=== PATIENT | female | born 1985 | race Caucasian/White ===

== ENCOUNTER 2023-12-13 08:37 | Emergency (ER) | payer OTHER, SELFPAY ==
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
--- NOTE | ~2023-12-13 | XR_ITS ---
EXAMINATION: XR SHOULDER, RIGHT CLINICAL INFORMATION: Pain COMPARISON: None available. TECHNIQUE: AP external rotation, Grashey, scapular Y views of the right shoulder. FINDINGS: The bones are intact. No fracture. Glenohumeral and acromioclavicular alignment is anatomic with normal joint space. No abnormal soft tissue calcifications. XR/XR shoulder RT min 2V IMPRESSION: No bony abnormality.
[2023-12-13 09:03] VITALS: BP 126/69; PULSE 77; RESP 18; TEMP 36.4; O2SAT 99; BMI 30.3
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
[2023-12-13] MEDS: Lidocaine 4 % Patch ADH..PATCH 1 PATCH TRANSDERMA (12:54)
[2023-12-13] MEDS: Ketorolac Tromethamine 30 MG/ML VIAL IM (12:55)
[2023-12-13 13:36] VITALS: BP 118/73; PULSE 66; RESP 12; TEMP 36.2; O2SAT 100
[2023-12-13 13:49] VITALS: BP 118/73; PULSE 66; RESP 12; TEMP 36.2; O2SAT 100
== END 2023-12-13 13:51 | disposition home or self-care (01) ==
PROVIDERS: Emergency Provider Emergency Medicine; PCP Student in an Organized Health Care Education/Training Program
DX: S06.0XAA Concussion with loss of consciousness status unknown, initial encounter (principal); S13.4XXA Sprain of ligaments of cervical spine, initial encounter; G89.11 Acute pain due to trauma; M25.511 Pain in right shoulder; V89.2XXA Person injured in unspecified motor-vehicle accident, traffic, initial encounter; Y93.9 Activity, unspecified; Y92.410 Unspecified street and highway as the place of occurrence of the external cause; Y99.9 Unspecified external cause status
CPT/HCPCS: 70450; 71045; 72125; 73030; 96372; 99284; J1885